=== PATIENT | female | born 1990 | race Caucasian/White ===

== ENCOUNTER 2018-07-28 08:00 | Inpatient (IN) ==
[2018-07-28] MEDS ORDERED: Famotidine 20 MG/2 ML VIAL IVP PRN (08:06)
[2018-07-28] MEDS ORDERED: Metoclopramide 10 MG/2 ML VIAL IVP PRN (08:06)
[2018-07-28] MEDS ORDERED: Naloxone 0.4 MG/ML INJ IVP PRN ×2 (08:06→15:04)
[2018-07-28] MEDS ORDERED: Ringers Solution, Lactated 1,000 ML IVC SCH (08:15)
[2018-07-28] MEDS ORDERED: miSOPROStol 25 MCG TABLET PO PRN (09:01)
[2018-07-28 09:09] LABS: Basophils % 0.2 %; Eosinophils # 0.1 K/mcL (0.0-0.6); Eosinophils % 0.5 %; Hematocrit 35.8 % (35.3-44.9); Hemoglobin 11.7 g/dL (11.5-15.4); Immature Granulocytes % 0.3 % (0-4); Lymphocytes # 1.8 K/mcL (0.6-4.6); Lymphocytes % 17.8 %; Mean Corpuscular HGB Conc 32.7 g/dL (31.6-35.5); Mean Corpuscular Hemoglobin 27.7 pg (28.0-33.3); Mean Corpuscular Volume 84.8 fL (83.0-100.0); Mean Platelet Volume 10.9 fL (9.4-12.4); Monocytes # 0.5 K/mcL (0.0-1.3); Monocytes % 4.8 %; Neutrophils # 7.7 K/mcL (1.6-8.9); Platelet Count 203 K/mcL (140-400); Red Blood Count 4.22 M/mcL (3.82-4.97); Segmented Neutrophils % 76.4 %
[2018-07-28 09:14] LABS: Amphetamine Screen,Urine Negative ng/mL (Cutoff=1000); Barbiturate Screen,Urine Negative ng/mL (Cutoff=200)
[2018-07-28 09:15] LABS: Benzodiazepines Screen,Urine Negative ng/mL (Cutoff=300); Cannabinoid Screen,Urine Negative ng/mL (Cutoff = 50); Cocaine Screen,Urine Negative ng/mL (Cutoff= 300); Opiate Screen,Urine Negative ng/mL (Cutoff=300); Phencyclidine Screen,Urine Negative ng/mL (Cutoff=25)
[2018-07-28 09:24] LABS: Alanine Aminotransferase 9 Units/L (7-52); Aspartate Amino Transferase 10 Units/L (13-39); BUN/Creatinine Ratio 18 (6-26); Blood Urea Nitrogen 11 mg/dL (6-20); Lactate Dehydrogenase 84 Units/L (140-271); Uric Acid 5.9 mg/dL (2.3-7.6); eGFR For Non-African Americans > 60 (> 60)
--- NOTE | 2018-07-28 10:15 | OB/GYN History & Physical ---
Date of Encounter: 07/28/18 Time of Encounter: 10:07 Assessment and Plan (1) 39 weeks gestation of Current visit: Yes Status: Acute Admit to labor and delivery for induction of labor Epidural when desired Consider augmentation if needed GBS- Blood type O- Anticipate vaginal delivery Continue routine care Dr. Saleh evaluation analyst (2) NST (non-stress test) reactive Current visit: Yes Status: Acute FHR 140 Moderate variability, +15x15 accelerations No decels (3) Factor 5 Leiden mutation, heterozygous Current visit: Yes Status: Acute Heterozygous for factor 5 leiden mutation Denies history of DVT/PE, chest pain, shortness of breath, or calf pain Continue aspirin 81 mg History of Present Illness Chief complaint: 39 weeks gestation of HPI: Ms. Obregon is a 28 year old female who presents today for IOL and 39w6d gestation of . She is and had care with Dr. Saleh. PMH significant for HPV, anxiety, and heterozygous for factor V leiden mutation and is currently on 81 mg aspirin. She denies history of DVT/PE. course has been uncomplicated besides some mildly elevated blood pressures throughout the without need for treatment. She admits to good movement and denies vaginal bleeding, contractions or leaking of fluid. She denies headache, nausea, vomiting, fever, chills, dizziness, vision changes, chest pain, shortness of breath, epigastric pain, dysuria, calf pain or edema. Blood type O- GBS- HIV- HBsAg- T pallidum - G/C - Rubella immune Varicella immune UDS- Dr. Saleh evaluation analyst Past Med Surg Social Fam HX - Past Medical History Attestation: Yes The following information was validated with the patient. Source: patient Medical history: other Additional medical history: FACTOR V DEF, HPV Psychiatric history: anxiety - Past Surgical History Surgical History: no surgical history - Social History Smoking Status: Former smoker Smokeless Tobacco Status: No Alcohol use: none Drug use: none Occupational status: employed Current living situation: Home - Independent Activity Level: Independent ambulation Recent Out of Country Travel Within the Last 8 Weeks: No Exposure or Possible Exposure to Illness During Travel: No - Family History Mother Race: Living Status: Still Living Hx Family Cardiac Disorders: Yes (HTN, factor v leiden mutation) Hx Family Respiratory Disorders: No Hx Family Cancer: No Hx Family GI Disorders: No Hx Family Genitourinary Disorders: No Hx Family Endocrine Disorder: No Hx Family Musculoskeletal Disorders: No Hx Family Neuromuscular Disorders: No Hx Family Neurologic Disorders: Yes (Father had spinal cerebellar ataxia) Hx Family HEENT Disorders: No Hx Family Autoimmune Disorders: No Hx Family Reproductive Disorders: No Hx Family Psychosocial Disorders: No Hx Family Medical Disorders: No Obstetrical History - Pregnancies : 2 Para: 1 Term: 1 : 0 Ab's: 0 Livin - History/Complications History/Complications: First was uncomplicated, term vaginal delivery Medications and Allergies Aspirin [Lo-Dose Aspirin EC] 81 mg PO 07/28/18 [History] Vits96/Iron Fum/Folic [ Tablet] 1 each PO 07/28/18 [History] Allergy/AdvReac Type Severity Reaction Status Date / Time No Known Allergies Allergy Verified 06/14/17 12:12 Review of System OB All systems PM: reviewed and no additional remarkable complaints except as stated Exam - Constitutional Constitutional: well developed, well nourished, no acute distress, obese - HEENT HEENT: EOMI, Normocephaly, Mucus Membranes Moist - Neck Neck exam: full ROM, trachea midline - Lungs Respiratory exam: CTAB - Cardiovascular Cardiovascular exam: RRR, +S1, +S2 - Abdomen Abdomen: Present: bowel sounds normal, gravid, non tender - Extremities Extremities exam: normal capillary refill, normal inspection, pedal edema, warm, radial pulses palpable and symmetrical Deep Tendon Reflex Grade: 2+ Normal - Vagina Vagina: Present: normal moisture - Cervix Dilation: 1 Effacement: 70 Station: -3 - Uterus Uterus exam: Present: normal size, normal contour - Anus/Rectum Anus/Rectum: Present: normal perianal skin Results Result Diagrams: 07/28/18 08:40 07/28/18 08:40 Abnormal lab results MCH 27.7 pg (28.0-33.3) L 07/28/18 08:40 RDW 16.0 % (11.5-14.5) H 07/28/18 08:40 AST 10 Units/L (13-39) L 07/28/18 08:40 Lactate Dehydrogenase 84 Units/L (140-271) L 07/28/18 08:40 All other labs normal. - VTE Reasons for not Prescribing Prophylaxis: Treatment not Indicated - Low risk for VTE
[2018-07-28] MEDS: Acetaminophen 325 MG TABLET PO PRN ×2 (14:16→21:18)
[2018-07-28] MEDS ORDERED: Ondansetron 4 MG/2 ML VIAL IVP PRN (15:04)
[2018-07-28] MEDS ORDERED: *HR* FentaNYL (PF) 100 MCG/2 ML VIAL EP ONE (15:04)
[2018-07-28] MEDS ORDERED: *HR* Ropivacaine/PF 0.2% 20 ML VIAL EP ONE (15:04)
[2018-07-28] MEDS ORDERED: EPHEDrine 50 MG/ML VIAL IVP PRN (15:04)
--- NOTE | 2018-07-28 15:08 | Anesthesia Evaluation PreOp ---
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) : Yes Alcohol Use: none Drug use: none Medications and Allergies Aspirin [Lo-Dose Aspirin EC] 81 mg PO 07/28/18 [History] Vits96/Iron Fum/Folic [ Tablet] 1 each PO 07/28/18 [History] Allergy/AdvReac Type Severity Reaction Status Date / Time No Known Allergies Allergy Verified 06/14/17 12:12 - Meds/Allergy Pre-op Review Medications Reviewed: Yes Allergies Reviewed: Yes Beta Blockers on Current Med List: No Anesthesia Results - Labs 07/28/18 08:40 07/28/18 08:40 Anesthesia Exam BP 130/84 P 67 R 16.0 T 98.0 Height: 5'11" Weight: 136.6kg NPO (# of Hours): 8hrs solids Pain Scale Used: Numeric (1 - 10) - HEENT Pupil (Motor): Pupils equal Mallampati: II Teeth: Normal Oral Opening: Greater than 3 - COMPUTER SYSTEMS DESIGNER LOC: Oriented COMPUTER SYSTEMS DESIGNER Motor: Normal RUE, Normal LUE, Normal RLE, Normal LLE, Normal Face COMPUTER SYSTEMS DESIGNER Sensory: Normal: RUE, LUE, RLE, LLE, Face - Cardiac Rhythm: Regular Murmur: None JVD: No Carotid Bruit: No - Pulmonary Breath Sounds: bilateral Clear Respiratory Effort: Symmetrical Anesthesia Assess/Plan ASA Score: 2 Level of consciousness: Cooperative Anesthetic Plan: Epidural Autologous Blood: Yes Monitoring Plan: Standard Monitors Recovery Plan: Other
[2018-07-28] MEDS ORDERED: Epidural Premix (fent/bupiv) 110 ML EP SCH (15:15)
[2018-07-28] MEDS ORDERED: Oxytocin 20 units/ LR 1000 mL 20 UNIT/1,000 ML BAG IVC SCH (15:45)
--- NOTE | 2018-07-28 16:57 | OB Labor Progress Note ---
Date of Encounter: 07/28/18 Time of Encounter: 16:56 Labor Progress Note - Subjective Subjective: Pt getting more uncomfortable - Cervix Cervix: Pt getting more uncomfortable. - Heart Tones Heart Tones: RNST - Plan Plan: Expect
[2018-07-28] MEDS ORDERED: Lidocaine -MPF 2% 5 ML VIAL ONE (17:05)
[2018-07-28] MEDS ORDERED: *HR* FentaNYL (PF) 100 MCG/2 ML VIAL ONE (17:06)
[2018-07-28] MEDS ORDERED: *HR* Ropivacaine/PF 0.2% 20 ML VIAL ONE (17:06)
--- NOTE | 2018-07-28 17:49 | Anesthesia Procedures ---
Addendum entered and electronically signed by Sabino Salazar CRNA 07/29/18 07:32: Infant A Delivery Date: 07/29/18 Infant Delivery Time: 02:37 Original Note: Date of Encounter: 07/28/18 Time of Encounter: 17:13 Procedures: Anesthesia - Epidural/Spinal Patient ID/Chart reviewed: Yes Patient examined: Yes OB Eval: Gestational age: 39.6 OB Eval: : 2 OB Eval: Hx Para: 1 OB Eval: Dilated at (cm): 3 OB Eval: Contractions: Non-stressed pattern Consent Obtained: Yes Supplemental Oxygen: None/Room Air Site Prep: Aseptic Technique, Sterile prep and drape, Povidone-Iodine 1% Patient position: upright Local Anesthetic: Lidocaine 1% Amount of Local Anesthetic used: 3 Touhy Needle Gauge: 18 Touhy Needle Depth (cm): 7 Catheter Depth at Skin (cm): 16 Test Dose (1.5% Lido + Epi): Volume given (mls): 3 Test Dose Result: Negative Loading Dose: Fentanyl (mcg): 100 Loading Dose: Other: Ropivicaine 0.2% 8ml Loading Dose Administered: Thru Catheter Infusion Med: 0.125% Bupivacaine w/ 2 mcg/ml Fentanyl Infusion Rate (mls/hr): [address]: Tegaderm, Tape Interspace Used: L3-L4 Loss of Resistance (HA): Yes Blood: No CSF: No Paresthesia: No Procedure: EVIE placed 1st pass in upright position without any immediate noted complicati ons. VSS and FHT stable throughout. Vitals + FHT's: 1713 BP 147/82 P 89 R 18 1745 BP 142/70 P 74 R 16 FHT 120s
[2018-07-29] MEDS ORDERED: *HR* Ropivacaine/PF 0.2% 20 ML VIAL ONE (00:31)
[2018-07-29] MEDS ORDERED: *HR* EPINEPHrine 1 MG/ML AMPUL ONE (03:14)
--- NOTE | 2018-07-29 03:39 | OB/GYN Procedure Note ---
Delivery - Delivery Date: 07/29/18 Provider: Paresh Saleh Intrapartum events: none Delivery induction: misoprostol Delivery monitor: none Anesthesia: epidural Quantitated Blood Loss: 450 - Infant (s) A Delivery Date: 07/29/18 Delivery Time: 02:37 Presentation: vertex Position: ANALI Route of delivery: Gender: Male Viability: Viable Pounds: 9 Ounces: 2 at 1 minute: 7 at 5 mins: 10 Specimens collected: cord blood Cord: 3 umbilical vessels - Repair Laceration Description: Perineal - 2nd Degree - Complications Delivery complications: none - Disposition Mom disposition: stable in LDR [place] disposition: stable in LDR - Comments Comments: Pt is s/p with direct assistance by Emilia Rosa of liveborn male weighing 9lb2oz. Apgars were 7 at 1 min and 10 at 5 min. We had spont delivery of intact normal placenta with 3 vc. 2nd degree laceration with left lateral labial extension was repaired with 3-0 vicryl under epidural anesthesia. Immediately following delivery pt did report nausea, fatige and weakness. Her BP was found to be approx 64/24. She was given IVF and second IV was started. Labs and type and cross 2 units were obtained. She was given IVF bolus and ephedrine. She responded and bp now 142/64 and she feels better.
[2018-07-29 03:47] LABS: Prothrombin Time 11.2 Seconds (9.4-12.1)
[2018-07-29 03:50] LABS: Activated Partial Thrombo Time 24.8 Seconds (26.0-36.0)
[2018-07-29] MEDS ORDERED: Oxytocin 20 units/ LR 1000 mL 20 UNIT/1,000 ML BAG IVC ONE (05:45)
[2018-07-29] MEDS ORDERED: Measles/Mumps/Rubella Vacc 0.5 ML VIAL SQ PRN (05:45)
[2018-07-29] MEDS ORDERED: Oxytocin 20 units/ LR 1000 mL 20 UNIT/1,000 ML BAG IVC SCH (05:45)
[2018-07-29] MEDS ORDERED: Rho Immune Globulin 1,500 UNIT SYRINGE IM PRN (05:45)
[2018-07-29] MEDS ORDERED: Prenatal Vit/FA 1 EACH TABLET PO SCH (09:00)
--- NOTE | 2018-07-29 10:00 | OB/GYN Progress Note ---
Date of Encounter: 07/29/18 Time of Encounter: 09:58 - Assessment and Plan (1) Status post normal vaginal delivery Current Visit: Yes Status: Acute Patient meeting milestones. Voiding well, passing flatus Tolerating diet Normal affect , has a breast pump at home Pain well controlled Ambulating without difficulty No decision on control CBC at noon today Anticipate discharge tomorrow with follow up in 4 weeks (2) Second degree perineal laceration during delivery Current Visit: Yes Status: Acute Pain well controlled Will give stool softener on discharge (3) (infant) Current Visit: Yes Status: Acute Patient has breastpump consultation if needed Subjective - Subjective Principal diagnosis: delivery day Interval history: Day 0 s/p normal spontaneous vaginal delivery. Patient states she is doing well this morning. Denies abdominal pain, increased vaginal bleeding, lightheadedness, headache, chest pain, shortness of breath. Passing flatus and voiding well. and baby latching and feeding well. Mood stable. No acute complaints. Patient reports: appetite normal, voiding normally, pain well controlled, ambulating normally : doing well Objective - Latest Vital Signs Latest vital signs: Vital Signs Temp Pulse Resp BP Pulse Ox 07/29/18 08:21 98.2 F 98 14 125/77 96 07/29/18 06:30 98.5 F 96 16 126/77 96 07/29/18 05:30 98.3 F 74 16 134/81 97 Intake and Output 07/28/18 07/29/18 07/29/18 23:59 07:59 15:59 Other: Stool Characteristics Normal for Patient # Voids 1 Weight 132.6 kg Patient Weight 07/29/18 23:59 Weight 132.6 kg - Exam Lungs: bilateral: normal (No crackles or wheezing) Chest: Normal S1 (RRR), Normal S2 Extremities: Present: normal. Absent: tenderness, edema Abdomen: Present: normal appearance, soft. Absent: hernia Uterus: Present: normal, firm Uterus Position: 2 Fingers Below Umbilicus, Midline - Labs Labs: Laboratory Results - last 24 hr 07/28/18 07/28/18 07/29/18 08:40 08:40 03:20 PT 11.2 INR 1.0 APTT 24.8 L Fibrinogen Hep Bs Antigen Nonreactive Blood Type O NEGATIVE Antibody Screen NEGATIVE Crossmatch See Detail 07/29/18 03:20 PT INR APTT Fibrinogen 615 H Hep Bs Antigen Blood Type Antibody Screen Crossmatch
[2018-07-29 12:37] LABS: Basophils % 0.2 %; Eosinophils % 0.1 %; Hematocrit 28.4 % (35.3-44.9); Immature Granulocytes % 0.4 % (0-4); Lymphocytes % 15.3 %; Mean Corpuscular HGB Conc 33.8 g/dL (31.6-35.5); Mean Corpuscular Volume 82.8 fL (83.0-100.0); Mean Platelet Volume 10.8 fL (9.4-12.4); Monocytes # 0.7 K/mcL (0.0-1.3); Neutrophils # 10.5 K/mcL (1.6-8.9); Platelet Count 173 K/mcL (140-400); Red Blood Count 3.43 M/mcL (3.82-4.97); Red Cell Distribution Width 15.9 % (11.5-14.5)
[2018-07-29 12:38] LABS: Hemoglobin 9.6 g/dL (11.5-15.4)
[2018-07-29] MEDS: Acetaminophen 325 MG TABLET PO PRN ×2 (13:20→20:01)
[2018-07-29] MEDS ORDERED: Ibuprofen 600 MG TABLET PO PRN (20:02)
[2018-07-30 03:19] LABS: Basophils % 0.2 %; Eosinophils # 0.1 K/mcL (0.0-0.6); Hematocrit 26.3 % (35.3-44.9); Hemoglobin 8.5 g/dL (11.5-15.4); Immature Granulocytes % 0.5 % (0-4); Immature Platelets 4.4 % (1.1-6.1); Lymphocytes # 2.8 K/mcL (0.6-4.6); Lymphocytes % 26.1 %; Mean Corpuscular HGB Conc 32.3 g/dL (31.6-35.5); Mean Corpuscular Hemoglobin 27.4 pg (28.0-33.3); Mean Corpuscular Volume 84.8 fL (83.0-100.0); Mean Platelet Volume 10.9 fL (9.4-12.4); Monocytes # 0.5 K/mcL (0.0-1.3); Monocytes % 4.8 %; Neutrophils # 7.3 K/mcL (1.6-8.9); Platelet Count 174 K/mcL (140-400); Red Cell Distribution Width 16.1 % (11.5-14.5); Segmented Neutrophils % 67.4 %
[2018-07-30] MEDS: Acetaminophen 325 MG TABLET PO PRN (04:37)
[2018-07-30 08:18] VITALS: BP 126/82
[2018-07-30 09:35] LABS: Protein/Creatinine Ratio,Urine 0.16 mg/mg (0.00-0.20)
--- NOTE | 2018-07-30 11:30 | Discharge Summary ---
Date of Encounter: 07/30/18 Time of Encounter: 11:27 - Discharge Diagnosis (1) anemia Priority: Secondary Status: Acute Comments: Continue iron supplementation daily x 3 months (2) (infant) Priority: Secondary Status: Acute Comments: Community resources provided (3) Status post normal vaginal delivery Priority: Primary Status: Acute Comments: Feeling well Tolerating regular diet Pain well-controlled with by mouth pain meds Ambulating independently Voiding independently Lochia light Passing flatus, no BM yet Vital signs stable Discharge home today - Discharge Medications Prescriptions: Ibuprofen [Motrin] 600 mg PO Q6HR PRN #30 tablet PRN Reason: Pain Docusate [Colace] 100 mg PO BID #60 capsule Ferrous Sulfate 325 mg PO BID #60 tablet Home Medications: Aspirin [Lo-Dose Aspirin EC] 81 mg PO 07/28/18 [History] Vits96/Iron Fum/Folic [ Tablet] 1 each PO 07/28/18 [History] Acetaminophen [Tylenol] 650 mg PO Q6H PRN tablet 07/30/18 [Rx] Docusate [Colace] 100 mg PO BID #60 capsule 07/30/18 [Rx] Ferrous Sulfate 325 mg PO BID #60 tablet 07/30/18 [Rx] Ibuprofen [Motrin] 600 mg PO Q6HR PRN #30 tablet 07/30/18 [Rx] Allergies/Adverse Reactions: Allergy/AdvReac Type Severity Reaction Status Date / Time No Known Allergies Allergy Verified 06/14/17 12:12 Data Procedures and tests throughout hospitalization: Laboratory Tests 07/28/18 07/28/18 07/28/18 08:40 08:40 08:40 WBC 10.0 RBC 4.22 Hgb 11.7 Hct 35.8 MCV 84.8 MCH 27.7 L MCHC 32.7 RDW 16.0 H Plt Count 203 MPV 10.9 Immature Gran % 0.3 Seg Neutrophils % 76.4 Lymphocytes % 17.8 Monocytes % 4.8 Eosinophils % 0.5 Basophils % 0.2 Neutrophils # 7.7 Lymphocytes # 1.8 Monocytes # 0.5 Eosinophils # 0.1 Basophils # 0.0 Immature Plt Fraction PT INR APTT Fibrinogen BUN Creatinine Est GFR ( Amer) Est GFR (Non-Af Amer) BUN/Creatinine Ratio Uric Acid AST ALT Lactate Dehydrogenase Urine Creatinine Protein/Creatinin Ratio Urine Total Protein Urine Opiates Screen Negative Ur Barbiturates Screen Negative Ur Phencyclidine Scrn Negative Ur Amphetamines Screen Negative U Benzodiazepines Scrn Negative Urine Cocaine Screen Negative U Marijuana (THC) Screen Negative Ur Drug Screen Interp See Below Hep Bs Antigen Blood Type O NEGATIVE Antibody Screen NEGATIVE Screen Baby's Blood Type Mother's Blood Type Rhogam Indicated Rhogam Req for Mother Crossmatch See Detail 07/28/18 07/28/18 07/28/18 08:40 08:40 08:40 WBC RBC Hgb Hct MCV MCH MCHC RDW Plt Count MPV Immature Gran % Seg Neutrophils % Lymphocytes % Monocytes % Eosinophils % Basophils % Neutrophils # Lymphocytes # Monocytes # Eosinophils # Basophils # Immature Plt Fraction PT INR APTT Fibrinogen BUN 11 Creatinine 0.60 Est GFR ( Amer) > 60 Est GFR (Non-Af Amer) > 60 BUN/Creatinine Ratio 18 Uric Acid 5.9 AST 10 L ALT 9 Lactate Dehydrogenase 84 L Urine Creatinine 174 Protein/Creatinin Ratio 0.16 Urine Total Protein 27 H Urine Opiates Screen Ur Barbiturates Screen Ur Phencyclidine Scrn Ur Amphetamines Screen U Benzodiazepines Scrn Urine Cocaine Screen U Marijuana (THC) Screen Ur Drug Screen Interp Hep Bs Antigen Nonreactive Blood Type Antibody Screen Screen Baby's Blood Type Mother's Blood Type Rhogam Indicated Rhogam Req for Mother Crossmatch 07/29/18 07/29/18 07/29/18 03:20 03:20 03:50 WBC RBC Hgb Hct MCV MCH MCHC RDW Plt Count MPV Immature Gran % Seg Neutrophils % Lymphocytes % Monocytes % Eosinophils % Basophils % Neutrophils # Lymphocytes # Monocytes # Eosinophils # Basophils # Immature Plt Fraction PT 11.2 INR 1.0 APTT 24.8 L Fibrinogen 615 H BUN Creatinine Est GFR ( Amer) Est GFR (Non-Af Amer) BUN/Creatinine Ratio Uric Acid AST ALT Lactate Dehydrogenase Urine Creatinine Protein/Creatinin Ratio Urine Total Protein Urine Opiates Screen Ur Barbiturates Screen Ur Phencyclidine Scrn Ur Amphetamines Screen U Benzodiazepines Scrn Urine Cocaine Screen U Marijuana (THC) Screen Ur Drug Screen Interp Hep Bs Antigen Blood Type Antibody Screen Screen NEGATIVE Baby's Blood Type A RH POSITIVE Mother's Blood Type O RH NEGATIVE Rhogam Indicated YES Rhogam Req for Mother 1 Crossmatch 07/29/18 07/30/18 12:26 02:33 WBC 13.3 H 10.8 RBC 3.43 L 3.10 L Hgb 9.6 L D 8.5 L Hct 28.4 L 26.3 L MCV 82.8 L 84.8 MCH 28.0 27.4 L MCHC 33.8 32.3 RDW 15.9 H 16.1 H Plt Count 173 174 MPV 10.8 10.9 Immature Gran % 0.4 0.5 Seg Neutrophils % 79.0 67.4 Lymphocytes % 15.3 26.1 Monocytes % 5.0 4.8 Eosinophils % 0.1 1.0 Basophils % 0.2 0.2 Neutrophils # 10.5 H 7.3 Lymphocytes # 2.0 2.8 Monocytes # 0.7 0.5 Eosinophils # 0.0 0.1 Basophils # 0.0 0.0 Immature Plt Fraction 4.4 PT INR APTT Fibrinogen BUN Creatinine Est GFR ( Amer) Est GFR (Non-Af Amer) BUN/Creatinine Ratio Uric Acid AST ALT Lactate Dehydrogenase Urine Creatinine Protein/Creatinin Ratio Urine Total Protein Urine Opiates Screen Ur Barbiturates Screen Ur Phencyclidine Scrn Ur Amphetamines Screen U Benzodiazepines Scrn Urine Cocaine Screen U Marijuana (THC) Screen Ur Drug Screen Interp Hep Bs Antigen Blood Type Antibody Screen Screen Baby's Blood Type Mother's Blood Type Rhogam Indicated Rhogam Req for Mother Crossmatch Labs on day of discharge: Labs from last 24 hours 07/30/18 07/29/18 07/29/18 02:33 12:26 03:50 WBC 10.8 13.3 H RBC 3.10 L 3.43 L Hgb 8.5 L 9.6 L D Hct 26.3 L 28.4 L MCV 84.8 82.8 L MCH 27.4 L 28.0 MCHC 32.3 33.8 RDW 16.1 H 15.9 H Plt Count 174 173 MPV 10.9 10.8 Immature Gran % 0.5 0.4 Seg Neutrophils % 67.4 79.0 Lymphocytes % 26.1 15.3 Monocytes % 4.8 5.0 Eosinophils % 1.0 0.1 Basophils % 0.2 0.2 Neutrophils # 7.3 10.5 H Lymphocytes # 2.8 2.0 Monocytes # 0.5 0.7 Eosinophils # 0.1 0.0 Basophils # 0.0 0.0 Immature Plt Fraction 4.4 Urine Creatinine Protein/Creatinin Ratio Urine Total Protein Screen NEGATIVE Baby's Blood Type A RH POSITIVE Mother's Blood Type O RH NEGATIVE Rhogam Indicated YES Rhogam Req for Mother 1 07/28/18 08:40 WBC RBC Hgb Hct MCV MCH MCHC RDW Plt Count MPV Immature Gran % Seg Neutrophils % Lymphocytes % Monocytes % Eosinophils % Basophils % Neutrophils # Lymphocytes # Monocytes # Eosinophils # Basophils # Immature Plt Fraction Urine Creatinine 174 Protein/Creatinin Ratio 0.16 Urine Total Protein 27 H Screen Baby's Blood Type Mother's Blood Type Rhogam Indicated Rhogam Req for Mother Date of admission: 07/28/18 08:04 Primary care physician: PCP NONE Consults: 07/29/18 05:45 Consult to Director Of Integrated Marketing [CONS] Routine Comment: Vaginal delivery, consult needed Discharging clinician: Pam Valdez Anticipated date of discharge: 07/30/18 - Patient Status Disposition: Home, Self-Care Condition: Good Functional capacity at discharge: independent ambulation Overall status at discharge: patient is progressing back to baseline - Discharge Instructions Follow Up With: NONE,PCP [Primary Care Provider] - Paresh Saleh MD [Partnered Physician] - - Diet and Activity Activity: increase activity as tolerated Diet: regular diet Hospital Course Reason for admission: induction of labor, IUP at term Delivery: Episiotomy: none Laceration: 2nd degree Other procedures: none complications: none Discharge diagnosis: IUP at term delivered [place] baby: male Time Attestation: Total time spent providing and/or coordinating discharge services: Time Spent: Less than 30 minutes Exam - Constitutional Vitals: Temp Pulse Resp BP Pulse Ox 97.8 F 76 16 126/82 97 07/30/18 07:50 07/30/18 07:50 07/30/18 07:50 07/30/18 07:50 07/30/18 07:50 General appearance IM: A&O X 3 - Respiratory Respiratory exam: Present: CTAB - Cardiovascular Cardiovascular exam IM: Present: RRR, +S1, +S2 - GI/Abdominal GI/Abdominal exam IM: normal bowel sounds, no peritoneal signs - Rectal Rectal exam: deferred - Uterine Tone: Firm - Extremities Exam Extremities exam IM: Present: normal capillary refill, normal inspection, radial pulses palpable and symmetrical - Neurological Exam Neurological exam: alert, CN II-XII intact, normal gait, oriented X3, reflexes normal, no focal deficits, strengths equal and symetr throughout - Psychiatric Additional comments: Patient reports history of anxiety. Signs and symptoms of depression discussed with patient and partner both verbalized understanding of when to seek help.
== END 2018-07-30 14:53 | disposition home or self-care (01) | DRG 806 ==
LOC: 1NENULAB 08:04 → 1NENUOBS 07-29 05:30
PROVIDERS: ADMIT Obstetrics & Gynecology; ATTEND Obstetrics & Gynecology